=== PATIENT | male | born 1960 | race Caucasian/White ===

== ENCOUNTER 2021-06-12 17:20 | Inpatient (IN) | payer MEDICAID ==
[~2021-06-12] VITALS: Ht 190.5 cm; Wt 93.0 kg
[2021-06-12 18:00] VITALS: BP 105/81
[2021-06-12] MEDS ORDERED: magnesium hydroxide 30ml (MOM) UD suspension PO PRN (18:00)
[2021-06-12] MEDS ORDERED: HYDROcodone/acetaminophen 5mg/325mg tablet PO PRN (18:00)
[2021-06-12] MEDS ORDERED: mag hydrox/Alum hydrox/simeth 30ml oral suspension PO PRN (18:00)
[2021-06-12] MEDS ORDERED: HYDROcodone/acetaminophen 10/325mg tab PO PRN (18:00)
[2021-06-12] MEDS ORDERED: ondansetron/PF 4mg/2ml inj IV PRN (18:00)
[2021-06-12] MEDS ORDERED: heparin 10,000 units/1 ML INJ IV ONE (18:00)
[2021-06-12] MEDS ORDERED: heparin 10,000 units/1 ML INJ IV PRN (18:00)
[2021-06-12] MEDS ORDERED: HYDROmorphone inj. 0.5 MG/0.5 ML DISP.SYRIN IV PRN ×2 (18:00)
[2021-06-12] MEDS ORDERED: acetaminophen 325mg tablet PO PRN ×2 (18:00)
[2021-06-12] MEDS ORDERED: MESSAGE TO PHARMACY PO ONE (18:05)
[2021-06-12] MEDS ORDERED: dextrose 50%-water 50ml dispensing syringe IV PRN ×2 (18:05)
[2021-06-12] MEDS ORDERED: dextrose ORAL solution 15 GM/59 ML bottle PO PRN ×2 (18:05)
[2021-06-12] MEDS ORDERED: glucagon, human recombinant 1mg kit SUBCUT PRN (18:05)
[2021-06-12] MEDS ORDERED: insulin Lispro (HumaLOG) vial - multi-dose SQ SCH (18:05)
[2021-06-12 18:43] LABS: BASOPHILS # (AUTO) 0.1 X10'3 (0-0.2); BASOPHILS % (AUTO) 1.2 % (0-1); EOSINOPHILS # (AUTO) 0.1 X10'3 (0-0.9); EOSINOPHILS % (AUTO) 1.1 % (0-6); HEMOGLOBIN 13.1 g/dl (14.0-17.9); LYMPHOCYTES # (AUTO) 2.1 X10'3 (1.1-4.8); LYMPHOCYTES % (AUTO) 30.4 % (21-51); MEAN CORPUSCULAR HEMOGLOBIN 28.7 PG (27.0-31.0); MEAN CORPUSCULAR HGB CONC 32.8 g/dL (33.0-36.5); MEAN CORPUSCULAR VOLUME 87.6 FL (78-98); MEAN PLATELET VOLUME 8.4 FL (7.4-10.4); MONOCYTES # (AUTO) 0.6 X10'3 (0-0.9); MONOCYTES % (AUTO) 9.1 % (2-12); NEUTROPHILS % (AUTO) 58.2 % (42-75); PLATELET COUNT 224 X10'3 (140-440); RED BLOOD COUNT 4.56 X10'6 (4.70-6.10); RED CELL DISTRIBUTION WIDTH 14.7 % (11.5-14.5); WHITE BLOOD COUNT 6.9 X10'3 (4.5-11.0)
[2021-06-12 18:57] LABS: HEMOGLOBIN A1C 7.9 % (4.5-6.2)
[2021-06-12 19:05] LABS: ALANINE AMINOTRANSFERASE 30 U/L (12-78); ALBUMIN 3.4 G/DL (3.4-5.0); ALBUMIN/GLOBULIN RATIO 0.8 (1.1-1.5); ALKALINE PHOSPHATASE 120 IU/L (46-116); ANION GAP 6 (8-16); ASPARTATE AMINO TRANSFERASE 28 U/L (10-37); BILIRUBIN,TOTAL 0.7 MG/DL (0.1-1.0); BLOOD UREA NITROGEN 21 MG/DL (7-18); BUN/CREATININE RATIO 13.7 (5.4-32.0); CALCIUM 8.4 MG/DL (8.5-10.1); CHLORIDE 105 MMOL/L (99-107); CREATININE 1.53 MG/DL (0.60-1.10); GLUCOSE 107 MG/DL (70-104); POTASSIUM 4.5 MMOL/L (3.5-5.1); SODIUM 139 MMOL/L (135-145); TOTAL PROTEIN 7.7 G/DL (6.4-8.2); eGFR 47 ML/MIN
--- NOTE | 2021-06-12 19:09 | NUR ---
Problems reprioritized. Patient report given, questions answered & plan of care reviewed with CAPRI White.
[2021-06-12] MEDS ORDERED: GABA300C PO (19:22)
[2021-06-12] MEDS ORDERED: PRIM50TA27 PO (19:22)
[2021-06-12] MEDS ORDERED: OMEP-50 PO (19:22)
[2021-06-12] MEDS ORDERED: FURO-150 PO (19:22)
[2021-06-12] MEDS: docusate sod 100mg capsule PO SCH (20:42)
[2021-06-12] MEDS: insulin glargine (Lantus) pen - multi-dose SQ SCH (21:00)
[2021-06-12] MEDS ORDERED: HYDROmorphone 1 mg/ml syringe IV PRN (21:10)
[2021-06-12] MEDS: LORazepam 2 mg/ml vial IV PRN (21:48)
[2021-06-12] MEDS: heparin 25,000 UNIT/250ml bag 250 ML IV SCH (21:54)
[2021-06-12 22:00] VITALS: BP 99/58
[2021-06-13 02:00] VITALS: BP 100/55
[2021-06-13 06:12] LABS: HEMATOCRIT 36.9 % (42.0-52.0); HEMOGLOBIN 12.1 g/dl (14.0-17.9); LYMPHOCYTES # (AUTO) 1.6 X10'3 (1.1-4.8); LYMPHOCYTES % (AUTO) 33.1 % (21-51); MEAN CORPUSCULAR HEMOGLOBIN 28.7 PG (27.0-31.0); MEAN CORPUSCULAR HGB CONC 32.9 g/dL (33.0-36.5); MEAN CORPUSCULAR VOLUME 87.4 FL (78-98); MEAN PLATELET VOLUME 8.4 FL (7.4-10.4); MONOCYTES # (AUTO) 0.5 X10'3 (0-0.9); MONOCYTES % (AUTO) 10.4 % (2-12); NEUTROPHILS # (AUTO) 2.6 X10'3 (1.8-7.7); NEUTROPHILS % (AUTO) 54.5 % (42-75); PLATELET COUNT 186 X10'3 (140-440); RED BLOOD COUNT 4.23 X10'6 (4.70-6.10); RED CELL DISTRIBUTION WIDTH 14.9 % (11.5-14.5); WHITE BLOOD COUNT 4.7 X10'3 (4.5-11.0)
[2021-06-13 06:37] LABS: ALBUMIN 3.1 G/DL (3.4-5.0); ANION GAP 8 (8-16); BLOOD UREA NITROGEN 19 MG/DL (7-18); BUN/CREATININE RATIO 13.9 (5.4-32.0); CALCIUM 8.5 MG/DL (8.5-10.1); CHLORIDE 107 MMOL/L (99-107); CHOL/HDL RATIO 4.4 (0.00-4.99); CHOLESTEROL 119 MG/DL (0-200); CREATININE 1.37 MG/DL (0.60-1.10); GLUCOSE 125 MG/DL (70-104); HDL CHOLESTEROL 27 MG/DL (35-60); LDL CHOLESTEROL 57 MG/DL (50-100); POTASSIUM 4.5 MMOL/L (3.5-5.1); SODIUM 140 MMOL/L (135-145); TOTAL CARBON DIOXIDE 24.7 MMOL/L (24-32); TRIGLYCERIDES 130 MG/DL (20-135); eGFR 53 ML/MIN
[2021-06-13] MEDS: aspirin 81mg, enteric-coated 1 TAB TABLET.DR PO SCH (07:49)
[2021-06-13] MEDS: docusate sod 100mg capsule PO SCH ×2 (07:49→21:44)
[2021-06-13] MEDS: heparin 25,000 UNIT/250ml bag 250 ML IV SCH (07:54)
[2021-06-13] MEDS: LORazepam 2 mg/ml vial IV PRN ×2 (09:25→19:10)
[2021-06-13] MEDS: HYDROmorphone 1 mg/ml syringe IV PRN ×4 (09:26→21:46)
[2021-06-13 10:27] LABS: TROPONIN I < 0.04 NG/ML (0.0-0.05)
[2021-06-13 11:00] VITALS: BP 107/77
--- NOTE | 2021-06-13 11:19 | NUR ---
paged Christiana regarding nicotine patch PAGER ID: [phone] MESSAGE: room 3026B, Humza Perkins, patient is requesting a nicotine patch, currently smokes ten cigarettes per day. May I put in an order for this? Thank you, CAPRI Amezquita #[id number]
[2021-06-13] MEDS ORDERED: METO-411 PO (11:25)
[2021-06-13] MEDS ORDERED: ATOR40TA71 PO (11:25)
[2021-06-13] MEDS ORDERED: INSU100C10 SQ (11:25)
[2021-06-13] MEDS ORDERED: IPRA3AMP31 IH (11:25)
[2021-06-13] MEDS ORDERED: LEVO100T9 PO (11:25)
[2021-06-13] MEDS ORDERED: ROPI0.5T4 PO (11:25)
[2021-06-13] MEDS ORDERED: DILT180C53 PO (11:25)
[2021-06-13] MEDS ORDERED: BUDE10.2 INH (11:25)
[2021-06-13] MEDS ORDERED: INSU100I31 SQ (11:25)
[2021-06-13] MEDS: nicotine 14mg patch - 24hr TD SCH (11:50)
--- NOTE | 2021-06-13 13:58 | NUR ---
Noted pt with T2DM, current A1c is 7.9%. Written DM education with RD contact information placed in patient's chart. Will remain available. Addendum: 06/13/21 at [address] Amended: Links added.
[2021-06-13] MEDS ORDERED: midazolam 1 mg/ML 2ml injection ONE (14:05)
[2021-06-13] MEDS ORDERED: iohexol 350MG/ML 100ml bottle IV ONE (14:05)
[2021-06-13] MEDS ORDERED: fentaNYL/PF 50MCG/1 ML 2ML syringe ONE (14:05)
[2021-06-13] MEDS ORDERED: LIDOcaine 1% (10mg/ml)w/preservative injection 20ml MDV ONE (14:05)
[2021-06-13 15:00] VITALS: BP 111/73
[2021-06-13 15:45] VITALS: BP 110/83
[2021-06-13] MEDS ORDERED: proCHLORperazine 10 MG/2 ml inj IV PRN (16:20)
[2021-06-13] MEDS ORDERED: OXAZEpam 15mg capsule PO PRN (16:20)
[2021-06-13] MEDS ORDERED: nitroGLYCERIN 0.4mg SUBLingual tab SL PRN (16:20)
[2021-06-13] MEDS ORDERED: acetaminophen 325mg tablet PO PRN (16:20)
[2021-06-13] MEDS ORDERED: HYDROcodone/acetaminophen 5mg/325mg tablet PO PRN (16:20)
[2021-06-13] MEDS ORDERED: ondansetron/PF 4mg/2ml inj IV PRN (16:20)
[2021-06-13] MEDS ORDERED: HYDROcodone/acetaminophen 10/325mg tab PO PRN (16:20)
[2021-06-13] MEDS: normal saline 1000ml 1,000 ML IV SCH ×2 (16:45→23:17)
[2021-06-13 18:00] VITALS: BP 130/94
--- NOTE | 2021-06-13 18:05 | NUR ---
Problems reprioritized. Patient report given, questions answered & plan of care reviewed with CAPRI Vasques.
--- NOTE | 2021-06-13 18:22 | NUR ---
Patient in room PCU 3026. I have received report from Bia FAROOQ and had the opportunity to ask questions and assume patient care.
--- NOTE | 2021-06-13 20:48 | NUR ---
Pt left hospital. Found pt outside smoking a cigarette after about 20 minutes of looking for him. Pt now in bathroom with heart rate in the 170s. Pt states he "is fine, just pooping"
--- NOTE | 2021-06-13 20:53 | NUR ---
Pt back in bed drinking water. Heart rate now 120s-130s.
[2021-06-13] MEDS: insulin glargine (Lantus) pen - multi-dose SQ SCH (21:00)
[2021-06-13] MEDS: apixaban 5mg tablet PO SCH (21:44)
[2021-06-13 22:00] VITALS: BP 124/80
--- NOTE | 2021-06-14 00:14 | NUR ---
Per MD Hernandez, pt has been removed from telemetry
[2021-06-14] MEDS: HYDROmorphone 1 mg/ml syringe IV PRN ×4 (01:03→10:10)
[2021-06-14] MEDS: LORazepam 2 mg/ml vial IV PRN ×2 (01:37→07:27)
--- NOTE | 2021-06-14 04:27 | NUR ---
Pulled Dilaudid to administer to pt. Vial broke in half. Wasted medication with witness. Pulled another Dilaudid to administer to pt. Vial broke in half again. Wasted medication with witness. Notified pharmacy.
--- NOTE | 2021-06-14 04:36 | NUR ---
Pt right groin heart cath site is more swollen and there is bruising now present around dressing that was not there previously. Site is still soft on palpation. Dressing CDI. Will continue to monitor.
[2021-06-14] MEDS: normal saline 1000ml 1,000 ML IV SCH (05:59)
--- NOTE | 2021-06-14 06:24 | NUR ---
Problems reprioritized. Patient report given, questions answered & plan of care reviewed with Mariajose FAROOQ.
--- NOTE | 2021-06-14 06:33 | NUR ---
Patient in room PCU 3026. I have received report from Caprice FAROOQ and had the opportunity to ask questions and assume patient care.
[2021-06-14 07:00] VITALS: BP_SYST 105; BP_SYST 122; BP_DIAS 71; BP_DIAS 87
[2021-06-14 07:05] LABS: BASOPHILS % (AUTO) 0.7 % (0-1); EOSINOPHILS % (AUTO) 0.7 % (0-6); HEMATOCRIT 38.1 % (42.0-52.0); HEMOGLOBIN 12.5 g/dl (14.0-17.9); LYMPHOCYTES # (AUTO) 1.1 X10'3 (1.1-4.8); LYMPHOCYTES % (AUTO) 25.3 % (21-51); MEAN CORPUSCULAR HEMOGLOBIN 28.7 PG (27.0-31.0); MEAN CORPUSCULAR HGB CONC 32.8 g/dL (33.0-36.5); MEAN CORPUSCULAR VOLUME 87.6 FL (78-98); MEAN PLATELET VOLUME 8.4 FL (7.4-10.4); MONOCYTES # (AUTO) 0.4 X10'3 (0-0.9); MONOCYTES % (AUTO) 9.9 % (2-12); NEUTROPHILS # (AUTO) 2.8 X10'3 (1.8-7.7); NEUTROPHILS % (AUTO) 63.4 % (42-75); PLATELET COUNT 195 X10'3 (140-440); RED BLOOD COUNT 4.35 X10'6 (4.70-6.10); RED CELL DISTRIBUTION WIDTH 14.7 % (11.5-14.5); WHITE BLOOD COUNT 4.5 X10'3 (4.5-11.0)
[2021-06-14] MEDS: apixaban 5mg tablet PO SCH (07:13)
[2021-06-14] MEDS: docusate sod 100mg capsule PO SCH (07:13)
[2021-06-14] MEDS: aspirin 81mg, enteric-coated 1 TAB TABLET.DR PO SCH (07:13)
[2021-06-14] MEDS: nicotine 14mg patch - 24hr TD SCH (07:14)
[2021-06-14 07:34] LABS: ALBUMIN 3.2 G/DL (3.4-5.0); ANION GAP 8 (8-16); BLOOD UREA NITROGEN 16 MG/DL (7-18); BUN/CREATININE RATIO 12.7 (5.4-32.0); CALCIUM 8.4 MG/DL (8.5-10.1); CHLORIDE 104 MMOL/L (99-107); CHOL/HDL RATIO 4.9 (0.00-4.99); CHOLESTEROL 128 MG/DL (0-200); CREATININE 1.26 MG/DL (0.60-1.10); GLUCOSE 123 MG/DL (70-104); HDL CHOLESTEROL 26 MG/DL (35-60); LDL CHOLESTEROL 57 MG/DL (50-100); POTASSIUM 4.5 MMOL/L (3.5-5.1); SODIUM 140 MMOL/L (135-145); TOTAL CARBON DIOXIDE 27.7 MMOL/L (24-32); TRIGLYCERIDES 244 MG/DL (20-135); eGFR 59 ML/MIN
[2021-06-14] MEDS ORDERED: furosemide 20MG tablet PO SCH (08:00)
--- NOTE | 2021-06-14 09:52 | NUR ---
PAGER ID: [phone] MESSAGE: patient Humza Perkins room 3024P has positive MRSA nasal swab.
[2021-06-14] MEDS ORDERED: oxyCODONE IR 5mg (immed. release) tablet PO ONE ×2 (10:45→11:05)
[2021-06-14 11:00] VITALS: BP 112/78
[2021-06-14] MEDS ORDERED: metoclopramide 10mg tablet PO ONE (12:45)
[2021-06-14] MEDS ORDERED: HYDR4TAB45 PO (12:54)
[2021-06-14] MEDS ORDERED: METO5TAB85 PO (12:56)
--- NOTE | 2021-06-14 13:30 | NUR ---
PAGER ID: [phone] MESSAGE: For patient Gonsalo Perkins Room 3253M, I need a paper prescription for the dilaudid. Thanks Mariajose ext [phone]
--- NOTE | 2021-06-14 14:53 | NUR ---
Patient stable for discharge per Dr Villeda. Tele DC'd, PIV DC'd with cannula intact. Patient verbalized understanding of medication regimen and importance of obtaining a primary care physician. [facility] home by [facility].
== END 2021-06-14 14:28 | disposition home or self-care (01) | DRG 191 ==
LOC: PCU 3S 17:20 → UNDOADMIN 17:20 → PCU 3S 18:02
PROVIDERS: ADMIT Internal Medicine; ATTEND Internal Medicine
PROC: 4A023N7 Measurement of Cardiac Sampling and Pressure, Left Heart, Percutaneous Approach (ICD-10-PCS; principal; 2021-06-13)
PROC: B2111ZZ Fluoroscopy of Multiple Coronary Arteries using Low Osmolar Contrast (ICD-10-PCS; 2021-06-13)
PROC: B2151ZZ Fluoroscopy of Left Heart using Low Osmolar Contrast (ICD-10-PCS; 2021-06-13)
DX: I20.0 Unstable angina (principal); I07.9 Rheumatic tricuspid valve disease, unspecified; I27.20 Pulmonary hypertension, unspecified; E11.22 Type 2 diabetes mellitus with diabetic chronic kidney disease; E78.5 Hyperlipidemia, unspecified; G40.909 Epilepsy, unspecified, not intractable, without status epilepticus; I48.91 Unspecified atrial fibrillation; F12.90 Cannabis use, unspecified, uncomplicated; I50.9 Heart failure, unspecified; G89.29 Other chronic pain; R94.39 Abnormal result of other cardiovascular function study; F17.210 Nicotine dependence, cigarettes, uncomplicated; J44.9 Chronic obstructive pulmonary disease, unspecified; N18.30 Chronic kidney disease, stage 3 unspecified; K74.60 Unspecified cirrhosis of liver; Z79.4 Long term (current) use of insulin; I25.2 Old myocardial infarction; Z79.899 Other long term (current) drug therapy; Z86.73 Personal history of transient ischemic attack (TIA), and cerebral infarction without residual deficits; Z88.5 Allergy status to narcotic agent; Z88.0 Allergy status to penicillin; Z91.030 Bee allergy status; Z88.8 Allergy status to other drugs, medicaments and biological substances; Z71.6 Tobacco abuse counseling
CPT/HCPCS: 36415; 80048; 80053; 80061; 82948; 83036; 83880; 84484; 85025; 85610; 85730; 87081; 93306; 93458; 99152; 99153; A4620; A6258; C1760; C1769; G0378; J1170; J1644; J1815; J2001; J2060; J2250; J3010; J7030; J8597; Q9967